=== PATIENT | male | born 1950 | race Caucasian/White ===

== ENCOUNTER → 2017-06-26 | Outpatient (CLI) | payer OTHER | LOC: FIMAGING 08:14 → EDBD 08:30 | DX: C61 Malignant neoplasm of prostate (principal); M76.21 Iliac crest spur, right hip | CPT/HCPCS: 72170; 78306; A9503 ==

== ENCOUNTER → 2017-07-16 | Outpatient (CLI) | payer OTHER ==
[~2017-07-16] MED LIST: LIDOCAINE 1% 300 MG/30 ML SDV ONE
== END ==
LOC: FIMAGING 11:58
PROC: 0G9K3ZZ Drainage of Thyroid Gland, Percutaneous Approach (ICD-10-PCS; principal; 2017-07-16)
DX: E04.1 Nontoxic single thyroid nodule (principal)